=== PATIENT | female | born 1990 | race African-American/Black ===

== ENCOUNTER 2020-03-23 08:11 | Emergency (ER) | payer BC, SELFPAY ==
--- NOTE | 2020-03-23 08:39 | PC.NURSE ---
Pt was having insurance issues and refused to let registration put her in as a [facility] pt. That is why there was a delay in registration.
[2020-03-23 08:45] VITALS: BP 127/88; PULSE 92; RESP 16; TEMP 36.6; O2SAT 100
--- NOTE | 2020-03-23 08:46 | ED.GENADULT ---
HPI - General Adult General Chief complaint: Unspecified Stated complaint: Prescription Refill Time Seen by Provider: 03/23/20 08:47 Source: patient and RN notes reviewed Mode of arrival: ambulatory Limitations: no limitations History of Present Illness HPI narrative: 29-year-old -[place] female presents with complaints of needing Glipizide and Basaglar filled for her diabetes for the past 1 week. [place] says she loss her PMD coverage 2 weeks ago. Denies fatigue, polyuria, polydipsia, nocturia, or blurred vision. Denies URI symptoms. Denies dysuria or hematuria. Denies recent weight loss, rapid heart beat, dizziness, lightheadedness, headache, and alter mental status. Denies fever or chills. Denies nausea, vomiting, and abdominal pain. Denies chest pain or shortness of breath. The patient reports she have not been diagnosed with COVID-19. The patient reports she is not waiting for the results of a COVID-19 lab test. The patient reports she do not have fever, chills, weakness, or fatigue. The patient reports she do not have a new or worsening cough, or chest congestion. Denies chest pain. The patient reports she do not have any rhinorrhea, congestion, sore throat, loss of taste, nausea, vomiting, abdominal pain, and diarrhea. Tolerating po intake well. Denies recent traveling. Denies concerns for COVID-19 or exposures been home with limited outdoor exposure except for essential household needs, work, and return home. At this time, patient is not suspected of having COVID-19. Some parts of this dictation were generated by voice recognition software and may contain typographical and/or grammatical inaccuracies. Related Data Allergies Allergy/AdvReac Type Severity Reaction Status Date / Time No Known Allergies Allergy Verified 03/23/20 08:49 Review of Systems Review of Systems: Narrative: CONSTITUTIONAL: Denies fever, chills, sweats. EYES: Denies visual changes, redness, discharge. ENT: Denies rhinorrhea, congestion, sore throat, otalgia. CARDIOVASCULAR: Denies chest pain, palpitations, edema. RESPIRATORY: Denies dyspnea, wheezing, cough. GASTROINTESTINAL: Denies abdominal pain, nausea, vomiting, or diarrhea. Complains of needing diabetes medications refill. GENITOURINARY: Denies dysuria, hematuria, abnormal discharge. SKIN: Denies rash or itching. MUSCULOSKELETAL: Denies acute back pain, joint pain, or myalgia. NEUROLOGIC: Denies numbness or focal weakness. PSYCHIATRIC: Denies anxiety or depression. All systems reviewed & are unremarkable except as noted in HPI and below. PENDING SALE TO [facility] Past Medical History Medical History (Updated 03/23/20 @ 09:04 by KELSIE Rodriguez) Diabetes Surgical History Surgical History (Updated 03/23/20 @ 08:59 by KELSIE Rodriguez) No significant past surgical history Family History Family History (Updated 03/23/20 @ 08:59 by KELSIE Rodriguez) Father Diabetes mellitus Mother Breast cancer Social History Social History (Updated 03/23/20 @ 09:52 by KELSIE Rodriguez) Smoking status: Never smoker Tobacco type: cigarettes Second hand tobacco smoke exposure: No Alcohol intake: current Substance use: never Living arrangements: with family Occupation/Education: occupation Gender identity (if verbalized by the patient): Female Sexual Orientation (if Verbalized by the Patient): Straight or Heterosexual Comments At time of signature, agree with nurse past medical, surgical, social, and family history. There is relevant patient's past medical history pertinent to the presenting complaint, no relevant family history pertinent to the presenting complaint. Exam Narrative: Exam Narrative: GENERAL: This is a well-nourished, well-developed patient, in no apparent distress. Talks in full sentences, no language deficiencies and ambulates with steady gait without dyspnea. HEAD: normocephalic, atraumatic. EYES: PERRL. Sclera clear/white.
== END 2020-03-23 09:10 | disposition home or self-care (01) ==
PROVIDERS: Emergency Provider Nurse Practitioner Family
DX: E11.9 Type 2 diabetes mellitus without complications (principal)
CPT/HCPCS: 99211; G0463

== ENCOUNTER 2024-04-18 15:48 | Emergency (ER) | payer BC, SELFPAY ==
--- NOTE | ~2024-04-18 | XR_ITS ---
EXAMINATION: XR ankle LT min 3V DATE: 04/18/2024 17:10 INDICATION: Left ankle medial swelling. TECHNIQUE: 3 views of left ankle were obtained. COMPARISON: None. FINDINGS: Alignment is normal. No fracture. Joint spaces are normal. There is a small fragment of oss ification distal to lateral malleolus, likely chronic. There is ankle soft tissue swelling. IMPRESSION: 1. No acute fracture. Reviewed, dictated and finalized at location A. IMPRESSION: 1. No acute fracture.
[2024-04-18 16:00] VITALS: BP 129/85; PULSE 87; RESP 18; TEMP 37.1; O2SAT 95
--- NOTE | 2024-04-18 16:25 | ED.LOWEXIN ---
HPI - Extremity Injury (Lower) General Chief Complaint: Extremity Injury, Lower Stated Complaint: Left Ankle Pain Time Seen by Provider: 04/18/24 16:25 Source: patient, RN notes reviewed and old records reviewed Mode of arrival: ambulatory Limitations: no limitations History of Present Illness HPI Narrative: Patient presents with complaints of left medial ankle pain and swelling that has been present for about 2 weeks. She denies any injury or trauma. She has not been taking anything for her symptoms. She reports that the pain is only present when she bears weight. She voices no other concerns or complaints Related Data Home Medications Medication Instructions Recorded Confirmed blood sugar diagnostic (OneTouch 04/18/24 04/18/24 Verio test strips) semaglutide 2 mg/dose (8 mg/3 mL) 1 mg subcut DIRECTED 04/18/24 04/18/24 subcutaneous pen injector (Ozempic) Allergies Allergy/AdvReac Type Severity Reaction Status Date / Time No Known Allergies Allergy Verified 04/18/24 16:22 Review of Systems Review of Systems: All systems reviewed & are unremarkable except as noted in HPI and below Constitutional: Constitutional: Reports no additional constitutional complaints ENT: Reports system reviewed and no additional complaints, except as documented Cardiovascular: Cardiovascular: Reports no additional cardiovascular complaints Respiratory: Respiratory: Reports no additional respiratory complaints Gastrointestinal: Gastrointestinal: Reports no additional gastrointestinal complaints Musculoskeletal: Musculoskeletal: Reports no additional musculoskeletal complaints, Reports as per HPI, Reports arthralgias and Reports joint swelling [facility] Past Medical History Medical History Diabetes Surgical History Surgical History No significant past surgical history Family History Family History Father Diabetes mellitus Mother Breast cancer Social History Social History Smoking status: Never smoker Tobacco type: cigarettes Second hand tobacco smoke exposure: No Alcohol intake: current Substance use: never Living arrangements: with family Occupation/Education: occupation Gender identity (if verbalized by the patient): Female Sexual Orientation (if Verbalized by the Patient): Straight or Heterosexual Comments At the time of my signature, I reviewed and agree with the nursing past medical, surgical, social, and family history. There is no relevant family history pertinent to the patient complaint. Exam Const: General: cooperative, no acute distress, alert and awake Orientation/consciousness: oriented to person, oriented to place and oriented to time HENMT: Head: normal to inspection Resp: Effort & Inspection: normal respiratory effort and able to speak in complete sentences Auscultation: clear to auscultation bilaterally, no crackles, no rales, no rhonchi and no wheezes Cardio: Palpation: normal PMI Rate: regular rate Rhythm: regular rhythm Heart sounds: S1 normal heart sound present and S2 normal heart sound present Neuro: General: oriented to person, oriented to place and oriented to time Cranial nerves: Yes CN's II-XII intact bilaterally Extrem: Left lower extremity: full ROM, normal capillary refill and ankle Details: swelling Details: medially and normal ROM; no warmth and no ecchymosis Psych: Appearance: grossly normal Thought process: Normal thought process present Insight: Good insight present (Psych) Judgement: Good judgement present (Psych) Course Course Level of Care: Express Care Visit Vital Signs Vital signs: Vital Signs Temperature 98.7 F 04/18/24 16:00 Pulse Rate 87 04/18/24 16:00 Respiratory Rate 18 04/18/24 16:00 Bloo
== END 2024-04-18 17:35 | disposition home or self-care (01) ==
PROVIDERS: Emergency Provider Nurse Practitioner Family
DX: M25.472 Effusion, left ankle (principal); E11.9 Type 2 diabetes mellitus without complications
CPT/HCPCS: 73610; 99213; G0463